=== PATIENT | male | born 1965 | race African-American/Black ===

== ENCOUNTER 2017-09-10 22:31 | Emergency (ER) | payer SELFPAY ==
[2017-09-10] MEDS ORDERED: MECLIZINE HCL 12.5 MG TAB ONE (23:06)
[2017-09-10 23:20] LABS: Absolute Lymphocytes (CBC) 2.5 K/uL (0.7-4.9); Absolute Monocytes 0.7 K/uL (0.1-1.3); Absolute Neutrophil 6.8 K/uL (1.8-8.0); Basophils % 0.5 % (0-1.3); Lymphocytes % 24.2 % (15.3-44.8); MCH 29.8 pg (27.0-35.0); MCV 88.1 fL (80-100); MPV 8.1 fL (7.6-11.3); Monocytes % 7.1 % (3.3-12.3); RBC Red Blood Cell Count 5.22 M/uL (4.33-5.43)
[2017-09-10 23:31] LABS: Protime INR 1.13
[2017-09-10 23:44] LABS: ALT/SGPT 26 U/L (12-78); AST/SGOT 13 U/L (15-37); Albumin 3.5 g/dL (3.4-5.0); Alkaline Phosphatase 111 U/L (45-117); BUN Blood Urea Nitrogen 7 mg/dL (7-18); Bicarbonate 30 mmol/L (21-32); Bilirubin Direct < 0.1 mg/dL (0-0.2); Bilirubin Total 0.4 mg/dL (0.2-1.0); Creatine Phosphokinase 77 U/L (39-308); Glucose Level 108 mg/dL (74-106); Magnesium 2.2 mg/dL (1.8-2.4); NT PRO-BNP 54 pg/mL (<125); Potassium 3.8 mmol/L (3.5-5.1); Protein, Total 8.2 g/dL (6.4-8.2); Sodium Level 141 mmol/L (136-145)
[2017-09-11] MEDS ORDERED: DIAZEPAM 2 MG TABLET ONE (00:48)
[2017-09-11] MEDS ORDERED: NA CHLORIDE 0.9% 1,000 ML ONE (00:53)
[2017-09-11 01:36] LABS: Urine Blood NEGATIVE (NEG); Urine Glucose NEGATIVE (NEG); Urine Protein NEGATIVE (NEG); Urine pH 7.5 (5.0-7.0)
--- NOTE | 2017-09-11 01:50 | EDPHYS ---
Physician Documentation [facility] Name: Eddie Hamilton Age: 52 yrs Sex: Male : 1965 Arrival Date: 09/10/2017 Time: 22:35 Bed 6 Private MD: ED Physician Urbano Hamilton HPI: 09/11 00:00 This 52 yrs old Black Male presents to ER via Wheelchair with complaints of Dizziness, pm1 Vertigo. 00:00 The patient presents with sense of spinning. Onset: The symptoms/episode began/occurred pm1 this morning. Context: occurred at home, just prior to the episode the patient experienced no apparent symptoms. Modifying factors: The symptoms are alleviated by holding head still, the symptoms are aggravated by movement of head, changing position. Associated signs and symptoms: Pertinent negatives: abdominal pain, chest pain, focal weakness, headache, numbness, shortness of breath, tingling. Severity of symptoms: in the emergency department the symptoms have improved. The patient has not experienced similar symptoms in the past. The patient has not recently seen a physician. Historical: - Allergies: 09/10 22:55 No Known Allergies; aa1 - Home Meds: 22:55 None [Active]; aa1 - PMHx: 22:55 None; aa1 - PSHx: 22:55 None; aa1 - Immunization history:: Flu vaccine is not up to date. - Social history:: Smoking status: Patient uses tobacco products, smokes one-half pack cigarettes per day. - Ebola Screening: : No symptoms or risks identified at this time. ROS: 09/11 00:00 Constitutional: Negative for fever, chills, and weight loss, Eyes: Negative for injury, pm1 pain, redness, and discharge, ENT: Negative for injury, pain, and discharge, Neck: Negative for injury, pain, and swelling, Cardiovascular: Negative for chest pain, palpitations, and edema, Respiratory: Negative for shortness of breath, cough, wheezing, and pleuritic chest pain, Abdomen/GI: Negative for abdominal pain, nausea, vomiting, diarrhea, and constipation, Back: Negative for injury and pain, : Negative for injury, bleeding, discharge, and swelling, MS/Extremity: Negative for injury and deformity, Skin: Negative for injury, rash, and discoloration. Neuro: Positive for vertigo, Negative for headache, weakness. Exam: 00:00 Constitutional: This is a well developed, well nourished patient who is awake, alert, pm1 and in no acute distress. Head/Face: Normocephalic, atraumatic. Eyes: Pupils equal round and reactive to light, extra-ocular motions intact. Lids and lashes normal. Conjunctiva and sclera are non-icteric and not injected. Cornea within normal limits. Periorbital areas with no swelling, redness, or edema. ENT: Nares patent. No nasal discharge, no septal abnormalities noted. Tympanic membranes are normal and external auditory canals are clear. Oropharynx with no redness, swelling, or masses, exudates, or evidence of obstruction, uvula midline. Mucous membranes moist. Neck: Trachea midline, no thyromegaly or masses palpated, and no cervical lymphadenopathy. Supple, full range of motion without nuchal rigidity, or vertebral point tenderness. No Meningismus. Chest/axilla: Normal chest wall appearance and motion. Nontender with no deformity. No lesions are appreciated. Cardiovascular: Regular rate and rhythm with a normal S1 and S2. No gallops, murmurs, or rubs. Normal PMI, no JVD. No pulse deficits. Respiratory: Lungs have equal breath sounds bilaterally, clear to auscultation and percussion. No rales, rhonchi or wheezes noted. No increased work of breathing, no retractions or nasal flaring. Abdomen/GI: Soft, non-tender, with normal bowel sounds. No distension or tympany. No guarding or rebound. No evidence of tenderness throughout. Back: No spinal tenderness. No costovertebral tenderness. Full range of motion. Skin: Warm, dry with normal turgor. Normal color with no rashes, no lesions, and no evidence of cellulitis. MS/ Extremity: Pulses equal, no cyanosis. Neurovascular intact. Full, normal range of motion. 00:00 Neuro: Orientation: is normal, Mentation: is normal, Motor: moves all fours, Sensation: is normal, Patient refused Ebonie-armijo pik maneuver. Moving patient's head side to side passively reproduced patient's symptoms of veritgo. Vital Signs: 09/10 22:45 BP 155 / 96; Pulse 81; Resp 16; Temp 98.4; Pulse Ox 96% on R/A; Weight 117.03 kg; aa1 Height 5 ft. 10 in. (177.80 cm); Pain 0/10; 23:10 BP 154 / 83 Supine; Pulse 85; lp1 23:10 BP 139 / 99 Sitting; Pulse 85; lp1 23:10 BP 138 / 100 Standing; Pulse 99; lp1 09/11 00:00 BP 143 / 82; Pulse 74; Resp 17; Pulse Ox 95% on R/A; lp1 00:30 BP 150 / 85; Pulse 87; Resp 17; Pulse Ox 94% on R/A; lp1 01:00 BP 140 / 95; Pulse 89; Resp 13; Pulse Ox 97% on R/A; lp1 02:00 BP 136 / 90; Pulse 76; Resp 17; Pulse Ox 95% on R/A; lp1 02:39 BP 137 / 88; Pulse 79; Resp 20; Pulse Ox 96% on R/A; tl2 09/10 22:45 Body Mass Index 37.02 (117.03 kg, 177.80 cm) aa1 MDM: 09/10 22:39 Patient medically screened. pm1 09/11 00:09 Data reviewed: vital signs. Data interpreted: Pulse oximetry: on room air is 96 %. pm1 Interpretation: normal. Counseling: I had a detailed discussion with the patient and/or guardian regarding: the historical points, exam findings, and any diagnostic results supporting the discharge/admit diagnosis, lab results, radiology results, the need for outpatient follow up, a neurologist, to return to the emergency department if symptoms worsen or persist or if there are any questions or concerns that arise at home. 09/10 22:55 Order name: Basic Metabolic Panel; Complete Time: 23:47 pm09/10 22:55 Order name: CBC with Diff; Complete Time: 23:47 pm09/10 22:55 Order name: Ckmb; Complete Time: 23:47 pm09/10 22:55 Order name: CPK; Complete Time: 23:47 pm09/10 22:55 Order name: LFT's; Complete Time: 23:47 pm09/10 22:55 Order name: Magnesium; Complete Time: 23:47 pm09/10 22:55 Order name: CT Head Brain wo Cont pm1 09/10 22:55 Order name: NT PRO-BNP; Complete Time: 23:47 pm09/10 22:55 Order name: PT-INR; Complete Time: 23:47 pm1 09/10 22:55 Order name: Ptt, Activated; Complete Time: 23:47 pm09/10 22:55 Order name: Troponin (emerg Dept Use Only); Complete Time: 23:47 pm1 09/10 22:55 Order name: XRAY Chest (1 view) pm1 09/11 01:21 Order name: Urine Dipstick--Ancillary (enter results); Complete Time: 01:48 ms 09/10 22:55 Order name: EKG; Complete Time: 22:56 pm1 09/10 22:55 Order name: Cardiac monitoring; Complete Time: 22:57 pm1 09/10 22:55 Order name: EKG - Nurse/Tech; Complete Time: 22:57 pm1 09/10 22:55 Order name: IV Saline Lock; Complete Time: 22:57 pm1 09/10 22:55 Order name: Labs collected and sent; Complete Time: 22:57 pm09/10 22:55 Order name: O2 Per Protocol; Complete Time: 22:57 pm09/10 22:55 Order name: O2 Sat Monitoring; Complete Time: 22:57 pm1 09/10 22:55 Order name: Urine Dipstick-Ancillary (obtain specimen); Complete Time: 01:13 pm09/10 22:55 Order name: Orthostatic Blood Pressure; Complete Time: 23:15 pm1 Administered Medications: 09/10 23:15 Drug: Meclizine 50 mg Route: PO; lp1 09/11 00:20 Follow up: Response: No change in condition lp1 00:47 Drug: Valium 2 mg Route: PO; aa1 02:40 Follow up: Response: No adverse reaction tl2 01:06 Drug: NS 0.9% 1000 ml Route: IV; Rate: 1000 ml; Site: left antecubital; tl2 02:44 Follow up: IV Status: Completed infusion tl2 Disposition: 09/11/17 01:49 Discharged to Home. Impression: Benign paroxysmal vertigo. - Condition is Stable. - Discharge Instructions: Benign Positional Vertigo. - Prescriptions for Valium 2 mg Oral Tablet - take 1 tablet by ORAL route every 8 hours As needed; 20 tablet. Zofran 4 mg Oral Tablet - take 1 tablet by ORAL route every 12 hours As needed; 20 tablet. - Medication Reconciliation Form, Thank You Letter, Prescription Opioid Use form. - Follow up: Emergency Department; When: As needed; Reason: Worsening of condition. Follow up: Lexa Nguyen MD; When: 2 - 3 days; Reason: Recheck today's complaints, Continuance of care, Re-evaluation by your physician. - Problem is new. - Symptoms have improved. Addendum: 09/12/2017 10:47 Co-signature as Attending Physician, Urbano Hamilton MD I agree with the assessment and c king plan of care. Signatures: Dispatcher [employer] EDMS Maryjane Reardon RN RN aa1 Urbano Hamilton MD MD cha Pena, Laura RN RN lp1 Vinicio Silver NP VIDEO GAME PROGRAMMER pm1 Senait Montes RN RN tl2 Corrections: (The following items were deleted from the chart) 09/11 02:44 01:49 09/11/2017 01:49 Discharged to Home. Impression: Benign paroxysmal vertigo. tl2 Condition is Stable. Forms are Medication Reconciliation Form, Thank You Letter, Antibiotic Education, Prescription Opioid Use. Follow up: Emergency Department; When: As needed; Reason: Worsening of condition. Follow up: Lxea Nguyen; When: 2 - 3 days; Reason: Recheck today's complaints, Continuance of care, Re-evaluation by your physician. Problem is new. Symptoms have improved. pm1
--- NOTE | 2017-09-11 01:50 | ER ---
Nurse's Notes [facility] Name: Eddie Hamilton Age: 52 yrs Sex: Male : 1965 Arrival Date: 09/10/2017 Time: 22:35 Bed 6 Private MD: Diagnosis: Benign paroxysmal vertigo Presentation: 09/10 22:45 Presenting complaint: Patient states: he woke up this about 0800 with significant aa1 dizziness. States, "I got up and the room was spinning and so I laid back down and then it started spinning the other way." Denies headache, blurred vision, numbness or tingling. Denies any other symptoms. Transition of care: patient was not received from another setting of care. Onset of symptoms was September 10, 2017 at 08:00. Risk Assessment: Do you want to hurt yourself or someone else? Patient reports no desire to harm self or others. Initial Sepsis Screen: Does the patient meet any 2 criteria? No. Patient's initial sepsis screen is negative. Does the patient have a suspected source of infection? No. Patient's initial sepsis screen is negative. Care prior to arrival: None. 22:45 Method Of Arrival: Wheelchair aa1 22:45 Acuity: NICO 3 aa1 Triage Assessment: 22:45 General: Appears in no apparent distress. comfortable, Behavior is calm, cooperative, aa1 appropriate for age. Pain: Denies pain. Historical: - Allergies: 22:55 No Known Allergies; aa1 - Home Meds: 22:55 None [Active]; aa1 - PMHx: 22:55 None; aa1 - PSHx: 22:55 None; aa1 - Immunization history:: Flu vaccine is not up to date. - Social history:: Smoking status: Patient uses tobacco products, smokes one-half pack cigarettes per day. - Ebola Screening: : No symptoms or risks identified at this time. Screenin/29 00:17 Abuse screen: Denies threats or abuse. Denies injuries from another. Nutritional lp1 screening: No deficits noted. Tuberculosis screening: No symptoms or risk factors identified. Fall Risk None identified. Assessment: 09/10 23:00 General: Appears uncomfortable, Behavior is appropriate for age. Pain: Denies pain. lp1 Neuro: Level of Consciousness is awake, alert, obeys commands, Oriented to person, place, time, situation, Pupils are PERRLA, Reports dizziness, since this morning. Cardiovascular: Patient's skin is warm and dry. Respiratory: Respiratory effort is even, unlabored, Breath sounds are clear bilaterally. GI: No signs and/or symptoms were reported involving the gastrointestinal system. : No signs and/or symptoms were reported regarding the genitourinary system. EENT: No signs and/or symptoms were reported regarding the EENT system. Derm: Skin is intact, Skin is dry, Skin is normal. Musculoskeletal: Circulation, motion, and sensation intact. 09/11 00:00 Reassessment: Patient appears in no apparent distress at this time. No changes from lp1 previously documented assessment. Patient and/or family updated on plan of care and expected duration. Pain level reassessed. 01:00 Reassessment: Patient and/or family updated on plan of care and expected duration. Pain lp1 level reassessed. Patient states dizziness continued. 02:41 Reassessment: Patient appears in no apparent distress at this time. Patient and/or tl2 family updated on plan of care and expected duration. Pain level reassessed. Patient is alert, oriented x 3, equal unlabored respirations, skin warm/dry/pink. Pt and family verbalized understanding of discharge instructions, need for follow up and prescription usage Patient states feeling better. Vital Signs: 09/10 22:45 BP 155 / 96; Pulse 81; Resp 16; Temp 98.4; Pulse Ox 96% on R/A; Weight 117.03 kg; aa1 Height 5 ft. 10 in. (177.80 cm); Pain 0/10; 23:10 BP 154 / 83 Supine; Pulse 85; lp1 23:10 BP 139 / 99 Sitting; Pulse 85; lp1 23:10 BP 138 / 100 Standing; Pulse 99; lp1 09/11 00:00 BP 143 / 82; Pulse 74; Resp 17; Pulse Ox 95% on R/A; lp1 00:30 BP 150 / 85; Pulse 87; Resp 17; Pulse Ox 94% on R/A; lp1 01:00 BP 140 / 95; Pulse 89; Resp 13; Pulse Ox 97% on R/A; lp1 02:00 BP 136 / 90; Pulse 76; Resp 17; Pulse Ox 95% on R/A; lp1 02:39 BP 137 / 88; Pulse 79; Resp 20; Pulse Ox 96% on R/A; tl2 09/10 22:45 Body Mass Index 37.02 (117.03 kg, 177.80 cm) aa1 ED Course: 09/10 22:35 Patient arrived in ED. es 22:38 Vinicio Silver NP is PHCP. pm1 22:38 Urbano Hamilton MD is Attending Physician. pm1 22:45 Arm band placed on right wrist. Patient placed in an exam room, on a stretcher. aa1 22:52 Triage completed. aa1 22:52 Inserted saline lock: 22 gauge in right hand, using aseptic technique. Blood collected. tl2 placed by demetri Pineda. 23:00 Patient has correct armband on for positive identification. Placed in gown. Bed in low lp1 position. Call light in reach. pvc monitor on. Pulse ox on. NIBP on. 23:01 Veronika Simon, RN is Primary Nurse. lp1 23:[address] via wheelchair. kw1 23:17 XRAY Chest (1 view) In Process Unspecified. EDMS 23:23 CT Head Brain wo Cont In Process Unspecified. EDMS 23:24 CT completed. Patient tolerated procedure well. Patient moved back from CT. kw1 09/11 01:48 Lexa Nguyen MD is Referral Physician. pm1 02:43 No provider procedures requiring assistance completed. IV discontinued, intact, tl2 bleeding controlled, No redness/swelling at site. Pressure dressing applied. Administered Medications: 09/10 23:15 Drug: Meclizine 50 mg Route: PO; lp1 09/11 00:20 Follow up: Response: No change in condition lp1 00:47 Drug: Valium 2 mg Route: PO; aa1 02:40 Follow up: Response: No adverse reaction tl2 01:06 Drug: NS 0.9% 1000 ml Route: IV; Rate: 1000 ml; Site: left antecubital; tl2 02:44 Follow up: IV Status: Completed infusion tl2 Outcome: 01:49 Discharge ordered by . pm1 02:43 Discharged to home via wheelchair, with family. tl2 02:43 Condition: stable 02:43 Discharge instructions given to patient, family, Instructed on discharge instructions, follow up and referral plans. medication usage, Demonstrated understanding of instructions, follow-up care, medications, Prescriptions given X 2. 02:44 Patient left the ED. tl2 Signatures: Dispatcher [employer] Maryjane Webster RN RN aa1 Rosa Baez Laura, RN RN lp1 Vinicio Silver, POULTRY KILLER POULTRY KILLER pm1 Senait Montes RN RN tl2 Alcira [facility]
[2017-09-11 02:51] VITALS: TEMP 98.4
[2017-09-11 02:56] VITALS: BP 137/88; O2SAT 96
--- NOTE | 2017-09-11 07:46 | RAD REPORT ---
EXAM DESCRIPTION: CT - Head Brain Wo Cont - 09/11/2017 12:21 am CLINICAL HISTORY: Weakness, dizziness A preliminary written report was provided at the time of the study, and the report was reviewed prio r to final dictation. COMPARISON: None. TECHNIQUE: Axial 5 mm thick images of the head were obtained without IV contrast. All CT scans are performed using dose optimization technique as appropriate and may include automated exposure control or mA/KV adjustment according to patient size. FINDINGS: No intracranial hemorrhage, mass, edema or shift of mid-line structures. No acute infarcti on changes seen. No abnormal extra-axial fluid collections. Ventricles are normal. Mastoid air cells are clear. No significant paranasal sinus finding. Physiologic calcifications are p resent. No acute bony findings. IMPRESSION: Negative non-contrast CT head examination.
--- NOTE | 2017-09-11 07:46 | RAD REPORT ---
EXAM DESCRIPTION: RAD - Chest Single View - 09/10/2017 11:16 pm CLINICAL HISTORY: Dizziness, shortness of breath COMPARISON: November 2016 TECHNIQUE: AP portable chest image was obtained 2312 hour . FINDINGS: No focal lung parenchymal process. Interstitial markings are prominent but not clearly dif ferent from the comparison. Trachea is midline. Heart and vasculature are normal. No measurable pleur al effusion and no pneumothorax. No gross bony abnormality seen. No acute aortic findings suspected. IMPRESSION: No acute cardiopulmonary process. No significant change from comparison.
--- NOTE | 2017-09-11 09:31 | EKG ---
Test Date: 2017-09-10 Test Time: 22:45:03 Percher: GREGOR MEASUREMENT RESULTS: Intervals: Rate: 87 PA: 138 QRSD: 88 QT: 378 QTc: 454 [place]: P: 76 PA: 138 QRS: 17 T: 49 INTERPRETIVE STATEMENTS: Normal sinus rhythm Right atrial enlargement Borderline ECG Compared to ECG 12/14/2016 10:53:54 Atrial abnormality now present Electronically Signed On 09-11-17 09:30:33 CDT by Vladislav Plascencia
== END 2017-09-11 02:44 | disposition home or self-care (01) ==
LOC: ER 22:31
DX: H81.10 Benign paroxysmal vertigo, unspecified ear (principal); F17.210 Nicotine dependence, cigarettes, uncomplicated
CPT/HCPCS: 36415; 70450; 71045; 80048; 80076; 81003; 82550; 82553; 83735; 83880; 84484; 85025; 85610; 85730; 93005; 96360; 96361; 99285; J7030

== ENCOUNTER 2017-12-08 13:13 | Emergency (ER) | payer SELFPAY ==
[2017-12-08] MEDS ORDERED: ASPIRIN 81 MG CHEWABLE TABLET ONE (13:35)
[2017-12-08] MEDS ORDERED: METOPROLOL TAR 50 MG TAB ONE (13:36)
[2017-12-08 13:50] LABS: Absolute Lymphocytes (CBC) 3.1 K/uL (0.7-4.9); Absolute Monocytes 0.6 K/uL (0.1-1.3); Absolute Neutrophil 2.7 K/uL (1.8-8.0); Eosinophils % 4.7 % (0-4.4); Hematocrit 45.7 % (39.6-49.0); Lymphocytes % 45.2 % (15.3-44.8); MCH 29.6 pg (27.0-35.0); MCV 88.1 fL (80-100); MPV 8.1 fL (7.6-11.3); Monocytes % 8.9 % (3.3-12.3); RBC Red Blood Cell Count 5.19 M/uL (4.33-5.43)
--- NOTE | 2017-12-08 14:04 | RAD REPORT ---
EXAM DESCRIPTION: RAD - Chest Single View - 12/08/2017 1:46 pm CLINICAL HISTORY: Chest pain and pressure COMPARISON: September 10 TECHNIQUE: AP portable chest image was obtained 1341 hours . FINDINGS: No focal mass or consolidation. Interstitial markings are prominent. Heart size and vascul ature within normal limits. Mild prominence of the lung parenchymal pattern has not changed from the prior study. No failure or volume overload. Heart and vasculature are normal. No measurable pleural effusion and no pneumothorax. No acute bony abnormality seen. No acute aortic findings suspected. IMPRESSION: No acute cardiopulmonary process. No significant change from comparison.
[2017-12-08 14:07] LABS: ALT/SGPT 28 U/L (12-78); AST/SGOT 15 U/L (15-37); Albumin 3.5 g/dL (3.4-5.0); Alkaline Phosphatase 114 U/L (45-117); BUN Blood Urea Nitrogen 10 mg/dL (7-18); Bicarbonate 26 mmol/L (21-32); Bilirubin Direct 0.1 mg/dL (0-0.2); Bilirubin Total 0.4 mg/dL (0.2-1.0); Glucose Level 133 mg/dL (74-106); Lipase 173 U/L (73-393); NT PRO-BNP 9 pg/mL (<125); Potassium 3.5 mmol/L (3.5-5.1); Protein, Total 8.4 g/dL (6.4-8.2); Sodium Level 138 mmol/L (136-145); Troponin I < 0.02 ng/mL (0.0-0.045)
--- NOTE | 2017-12-08 14:42 | ER ---
Nurse's Notes [facility] Name: Eddie Hamilton Age: 52 yrs Sex: Male : 1965 Arrival Date: 12/08/2017 Time: 13:15 Bed 23 Private MD: Diagnosis: Unspecified atrial fibrillation;Chest pain, unspecified Presentation: 12/08 13:20 Presenting complaint: Patient states: Chest pressure and tightness that began 30 aj1 minutes ago. Also reports palpitations and shortness of breath. Patient appears uncomfortable, clutching chest. Dr. Browne and ARPITA Olivarez at bedside during triage. Transition of care: patient was not received from another setting of care. Onset of symptoms was December 08, 2017 at 12:50. Risk Assessment: Do you want to hurt yourself or someone else? Patient reports no desire to harm self or others. Initial Sepsis Screen: Does the patient meet any 2 criteria? HR > 90 bpm. No. Patient's initial sepsis screen is negative. Does the patient have a suspected source of infection? No. Patient's initial sepsis screen is negative. Care prior to arrival: None. 13:20 Method Of Arrival: Wheelchair aj1 13:20 Acuity: NICO 2 aj1 Triage Assessment: 13:23 General: Appears distressed, uncomfortable, Behavior is cooperative, restless. Pain: aj1 Complains of pain in chest Pain does not radiate. Pain currently is 10 out of 10 on a pain scale. Quality of pain is described as pressure, Pain began 30 min ago. Is continuous, Alleviated by nothing. Aggravated by nothing. Neuro: Level of Consciousness is awake, alert, obeys commands. Cardiovascular: Reports chest pain, palpitations, shortness of breath, Patient's skin is warm and dry. Rhythm is irregular. Respiratory: Airway is patent Respiratory effort is even, unlabored, Respiratory pattern is regular, symmetrical. Historical: - Allergies: 13:23 No Known Allergies; aj1 - Home Meds: 13:23 None [Active]; aj1 - PMHx: 13:23 Asthma; aj1 - PSHx: 13:23 None; aj1 - Immunization history:: Flu vaccine is not up to date. - Social history:: Smoking status: Patient uses tobacco products, smokes one-half pack cigarettes per day. - Ebola Screening: : Patient denies travel to an Ebola-affected area in the 21 days before illness onset. - Family history:: not pertinent. - Hospitalizations: : No recent hospitalization is reported. Screenin:34 Abuse screen: Denies threats or abuse. Denies injuries from another. Nutritional kr2 screening: No deficits noted. Tuberculosis screening: No symptoms or risk factors identified. Fall Risk None identified. Assessment: 13:35 General: Appears in no apparent distress. uncomfortable, well groomed, Behavior is kr2 calm, cooperative, appropriate for age. Pain: Complains of pain in chest Pain does not radiate. Pain currently is 10 out of 10 on a pain scale. Quality of pain is described as pressure, Is continuous, Alleviated by nothing. Pain: Pain began suddenly. Neuro: Level of Consciousness is awake, alert, obeys commands, Oriented to person, place, time, situation. Cardiovascular: Patient's skin is warm and dry. Cardiovascular: Heart tones S1 S2. Respiratory: Airway is patent Respiratory effort is even, unlabored, Respiratory pattern is regular, symmetrical. GI: Abdomen is flat, non-distended, Patient currently denies nausea. EENT: Oral mucosa is moist. Derm: Skin is intact, is healthy with good turgor, Skin is pink, warm \T\ dry. Musculoskeletal: Circulation, motion, and sensation intact. 14:28 Reassessment: Patient appears in no apparent distress at this time. Patient and/or kr2 family updated on plan of care and expected duration. Pain level reassessed. Patient is alert, oriented x 3, equal unlabored respirations, skin warm/dry/pink. Patient states feeling better. Vital Signs: 13:23 BP 151 / 101; Pulse 110; Resp 22; Temp 97.4; Pulse Ox 97% on R/A; Pain 10/10; aj1 13:25 Weight 116.57 kg (R); Height 5 ft. 10 in. (177.80 cm) (R); aj1 14:28 BP 127 / 90; Pulse 82; Resp 15; Pulse Ox 97% on R/A; kr2 13:25 Body Mass Index 36.88 (116.57 kg, 177.80 cm) aj1 ED Course: 13:15 Patient arrived in ED. as 13:19 Calvin Browne MD is Attending Physician. rn 13:20 Patient has correct armband on for positive identification. Bed in low position. Call kr2 light in reach. Side rails up X 1. Adult w/ patient. activities aide on. Pulse ox on. NIBP on. Door closed. Verbal reassurance given. Head of bed elevated. 13:22 Triage completed. aj1 13:23 Arm band placed on Patient placed in an exam room. aj1 13:25 EKG done, by service tech. reviewed by Calvin Browne MD. 3 13:25 Inserted saline lock: 20 gauge in right antecubital area, using aseptic technique. kr2 Blood collected. 13:27 Juanis Rivero, RN is Primary Nurse. kr2 13:35 Patient maintains SpO2 saturation greater than 95% on room air. kr2 13:47 XRAY Chest (1 view) In Process Unspecified. EDMS 14:05 Basic Metabolic Panel Sent. jp3 14:05 CBC with Diff Sent. jp3 14:05 LFT's Sent. jp3 14:05 NT PRO-BNP Sent. jp3 14:05 Troponin (emerg Dept Use Only) Sent. jp3 14:13 REPEAT EKG DONE. 3 14:42 Hilario Mccormick MD is Referral Physician. rn 14:56 No provider procedures requiring assistance completed. IV discontinued, intact, kr2 bleeding controlled, No redness/swelling at site. Pressure dressing applied. Administered Medications: 13:32 Drug: Aspirin Chewable Tablet 324 mg Route: PO; kr2 14:50 Follow up: Response: No adverse reaction kr2 13:32 Drug: Metoprolol TARTRATE (Lopressor) 50 mg Route: PO; kr2 14:50 Follow up: Response: No adverse reaction kr2 Outcome: 14:42 Discharge ordered by . rn 14:57 Discharged to home ambulatory, with friend. kr2 14:57 Condition: good 14:57 Discharge instructions given to patient, Instructed on discharge instructions, follow up and referral plans. Demonstrated understanding of instructions, follow-up care. 14:57 Patient left the ED. kr2 Signatures: Dispatcher [employer] EDMS Geni Pal RN RN michell1 Linn Cabrera Roman, MD MD rn Reaves, Karey, RN RN kr2 Enriqueta Jones 3 Donny Granda jp3 Corrections: (The following items were deleted from the chart) 13:25 13:20 Presenting complaint: Patient states: Chest pressure and tightness that began 30 aj1 minutes ago. Also reports palpitations and shortness of breath. Patient appears uncomfortable, clutching chest. aj1
--- NOTE | 2017-12-08 14:42 | EDPHYS ---
Physician Documentation [facility] Name: Eddie Hamilton Age: 52 yrs Sex: Male : 1965 Arrival Date: 12/08/2017 Time: 13:15 Bed 23 Private MD: ED Physician Calvin Browne HPI: 12/08 13:23 This 52 yrs old Black Male presents to ER via Wheelchair with complaints of Chest Pain. rn 13:23 The patient or guardian reports chest pain that is located primarily in the substernal rn area. Onset: 20 minute(s) ago. The pain does not radiate. Associated signs and symptoms: Pertinent positives: palpitations, Pertinent negatives: abdominal pain, cough, diaphoresis, dizziness, lower extremity swelling, lightheadedness. The chest pain is described as a heaviness, a pressure. Duration: The patient or guardian reports a single episode, that is still ongoing. Severity of pain: At its worst the pain was moderate in the emergency department the pain is unchanged. The patient has not experienced similar symptoms in the past. The patient has not recently seen a physician. Historical: - Allergies: 13:23 No Known Allergies; aj1 - Home Meds: 13:23 None [Active]; aj1 - PMHx: 13:23 Asthma; aj1 - PSHx: 13:23 None; aj1 - Immunization history:: Flu vaccine is not up to date. - Social history:: Smoking status: Patient uses tobacco products, smokes one-half pack cigarettes per day. - Ebola Screening: : Patient denies travel to an Ebola-affected area in the 21 days before illness onset. - Family history:: not pertinent. - Hospitalizations: : No recent hospitalization is reported. ROS: 13:23 Constitutional: Negative for fever, chills, and weight loss, Eyes: Negative for injury, rn pain, redness, and discharge, Neck: Negative for injury, pain, and swelling, Cardiovascular: + chest pain and palpitations Respiratory: Negative for shortness of breath, cough, wheezing, and pleuritic chest pain, Abdomen/GI: Negative for abdominal pain, nausea, vomiting, diarrhea, and constipation, MS/Extremity: Negative for injury and deformity, Skin: Negative for injury, rash, and discoloration, Neuro: Negative for headache, weakness, numbness, tingling, and seizure. Exam: 13:23 Constitutional: This is a well developed, well nourished patient who is awake, alert, rn appears anxious Head/Face: Normocephalic, atraumatic. Eyes: Pupils equal round and reactive to light, extra-ocular motions intact. Lids and lashes normal. Conjunctiva and sclera are non-icteric and not injected. Cornea within normal limits. Periorbital areas with no swelling, redness, or edema. Cardiovascular: tachycardic, irregular, no murmur Respiratory: mild tachypnea, clear bilateral breath sounds Abdomen/GI: soft, non-tender MS/ Extremity: Pulses equal, no cyanosis. Neurovascular intact. Full, normal range of motion. Equal circumference. Neuro: Awake and alert, GCS 15, oriented to person, place, time, and situation. Cranial nerves II-XII grossly intact. Motor strength 5/5 in all extremities. Sensory grossly intact. Vital Signs: 13:23 BP 151 / 101; Pulse 110; Resp 22; Temp 97.4; Pulse Ox 97% on R/A; Pain 10/10; aj1 13:25 Weight 116.57 kg (R); Height 5 ft. 10 in. (177.80 cm) (R); aj1 14:28 BP 127 / 90; Pulse 82; Resp 15; Pulse Ox 97% on R/A; kr2 13:25 Body Mass Index 36.88 (116.57 kg, 177.80 cm) aj1 MDM: 13:19 Patient medically screened. rn 14:33 Differential diagnosis: acute myocardial infarction, acute pericarditis, coronary rn artery disease gastritis, pleurisy, pneumothorax, stable angina, afib. The patient was given aspirin in the Emergency Department. Data reviewed: vital signs, EMS record, lab test result(s), EKG, radiologic studies, plain films, and as a result, I will admit patient. Counseling: I had a detailed discussion with the patient and/or guardian regarding: the historical points, exam findings, and any diagnostic results supporting the discharge/admit diagnosis, lab results, radiology results, the need for outpatient follow up, to return to the emergency department if symptoms worsen or persist or if there are any questions or concerns that arise at home. Special discussion: I discussed with the patient/guardian in detail that at this point there is no indication for admission to the hospital. It is understood, however, that if the symptoms persist or worsen the patient needs to return immediately for re-evaluation. Based on the history and exam findings, there is no indication for further emergent testing or inpatient evaluation. I discussed with the patient/guardian the need to see the conveyor man for further evaluation of the symptoms. ED course: Patient with return to baseline, tachycardia and chest pain likely due to afib with rvr, single dose of metoprolol and now sinus and no chest pain. Trop normal. Offered admission for cardiology eval, patient states cannot stay tonight, ensures me that he will f/u with pcp and cardiology, will take daily aspirin until then. . 12/08 13:21 Order name: XRAY Chest (1 view); Complete Time: 14:06 rn 12/08 13:42 Order name: Basic Metabolic Panel; Complete Time: 14:18 EDMS 12/08 13:42 Order name: Liver (Hepatic) Function; Complete Time: 14:18 EDMS 12/08 13:42 Order name: Troponin I; Complete Time: 14:18 EDMS 12/08 13:42 Order name: NT PRO-BNP; Complete Time: 14:18 EDMS 12/08 13:42 Order name: Lipase; Complete Time: 14:18 EDMS 12/08 13:42 Order name: CBC with Automated Diff; Complete Time: 14:06 EDMS 12/08 13:21 Order name: EKG; Complete Time: 13:40 rn 12/08 13:21 Order name: Cardiac monitoring; Complete Time: 13:24 rn 12/08 13:21 Order name: EKG - Nurse/Tech; Complete Time: 13:24 rn 12/08 13:21 Order name: IV Saline Lock; Complete Time: 13:24 rn 12/08 13:21 Order name: Labs collected and sent; Complete Time: 13:24 rn 12/08 13:21 Order name: O2 Per Protocol; Complete Time: 13:25 rn 12/08 13:21 Order name: O2 Sat Monitoring; Complete Time: 13:25 rn Administered Medications: 13:32 Drug: Aspirin Chewable Tablet 324 mg Route: PO; kr2 14:50 Follow up: Response: No adverse reaction kr2 13:32 Drug: Metoprolol TARTRATE (Lopressor) 50 mg Route: PO; kr2 14:50 Follow up: Response: No adverse reaction kr2 Disposition: 12/08/17 14:42 Discharged to Home. Impression: Unspecified atrial fibrillation, Chest pain, unspecified. - Condition is Stable. - Discharge Instructions: Atrial Fibrillation, Nonspecific Chest Pain. - Medication Reconciliation Form, Thank You Letter, Antibiotic Education, Prescription Opioid Use form. - Follow up: Hilario Mccormick MD; When: As needed; Reason: Recheck today's complaints, Re-evaluation by your physician. - Problem is new. - Symptoms have improved. Signatures: Dispatcher [employer] EDMS Geni Pal RN RN aj1 Calvin Browne MD MD rn Reaves, Karey, RN RN kr2 Corrections: (The following items were deleted from the chart) 14:57 14:42 12/08/2017 14:42 Discharged to Home. Impression: Unspecified atrial fibrillation; kr2 Chest pain, unspecified. Condition is Stable. Forms are Medication Reconciliation Form, Thank You Letter, Antibiotic Education, Prescription Opioid Use. Follow up: Hilario Mccormick; When: As needed; Reason: Recheck today's complaints, Re-evaluation by your physician. Problem is new. Symptoms have improved. rn
[2017-12-08 15:15] VITALS: TEMP 97.4; O2SAT 97
[2017-12-08 15:16] VITALS: BP 127/90
--- NOTE | 2017-12-09 07:31 | EKG ---
Test Date: 2017-12-08 Test Time: 14:06:14 Clinical Statistical Programmer: EVERTON MEASUREMENT RESULTS: Intervals: Rate: 84 PA: 154 QRSD: 92 QT: 370 QTc: 437 [place]: P: 68 PA: 154 QRS: 16 T: 50 INTERPRETIVE STATEMENTS: Normal sinus rhythm Right atrial enlargement Borderline ECG Compared to ECG 12/08/2017 13:22:10 Atrial abnormality now present Atrial fibrillation no longer present Ventricular premature complex(es) no longer present Electronically Signed On 12-09-17 07:27:52 CDT by Hilario Mccormick
--- NOTE | 2017-12-09 07:31 | EKG ---
Test Date: 2017-12-08 Test Time: 13:22:10 Property Developer: HERMELINDA MEASUREMENT RESULTS: Intervals: Rate: 116 HI: QRSD: 86 QT: 324 QTc: 450 [place]: P: HI: QRS: 16 T: 31 INTERPRETIVE STATEMENTS: Atrial fibrillation with rapid ventricular response with premature ventricular or aberrantly conducted complexes Abnormal ECG Compared to ECG 09/10/2017 22:45:03 Ventricular premature complex(es) now present Sinus rhythm no longer present Atrial abnormality no longer present Electronically Signed On 12-09-17 07:27:52 CDT by Hilario Mccormick
== END 2017-12-08 14:57 | disposition home or self-care (01) ==
LOC: ER 13:13
DX: I48.91 Unspecified atrial fibrillation (principal); F17.210 Nicotine dependence, cigarettes, uncomplicated
CPT/HCPCS: 36415; 71045; 80048; 80076; 83690; 83880; 84484; 85025; 93005; 99285

== ENCOUNTER 2018-09-11 07:42 | Emergency (ER) | payer SELFPAY ==
[2018-09-11] MEDS ORDERED: ASPIRIN 81 MG CHEWABLE TABLET ONE (08:17)
[2018-09-11 08:23] LABS: Absolute Lymphocytes (CBC) 3.2 K/uL (0.7-4.9); Basophils % 0.8 % (0-1.3); Hematocrit 46.1 % (39.6-49.0); MPV 8.2 fL (7.6-11.3); RBC Red Blood Cell Count 5.22 M/uL (4.33-5.43)
[2018-09-11 08:24] LABS: Protime INR 1.07
[2018-09-11] MEDS ORDERED: MORPHINE 2 MG/ML SYR ONE (08:26)
[2018-09-11] MEDS ORDERED: ONDANSETRON 4 MG/2 ML VIAL ONE (08:26)
[2018-09-11 08:41] LABS: ALT/SGPT 26 U/L (12-78); AST/SGOT 16 U/L (15-37); Albumin 3.2 g/dL (3.4-5.0); Alkaline Phosphatase 103 U/L (45-117); BUN Blood Urea Nitrogen 10 mg/dL (7-18); Bicarbonate 24 mmol/L (21-32); Bilirubin Direct < 0.1 mg/dL (0-0.2); Bilirubin Total 0.3 mg/dL (0.2-1.0); Glucose Level 165 mg/dL (74-106); Magnesium 1.9 mg/dL (1.8-2.4); NT PRO-BNP 12 pg/mL (<125); Potassium 3.2 mmol/L (3.5-5.1); Protein, Total 7.6 g/dL (6.4-8.2); Sodium Level 141 mmol/L (136-145); Troponin (Emerg Dept Use Only) < 0.02 ng/mL (0.0-0.045)
--- NOTE | 2018-09-11 09:00 | EKG ---
Test Date: 2018-09-11 Test Time: 07:56:49 Breakfast Manager: PHILIPPE MEASUREMENT RESULTS: Intervals: Rate: 94 WA: 146 QRSD: 92 QT: 368 QTc: 460 [place]: P: 78 WA: 146 QRS: 36 T: 73 INTERPRETIVE STATEMENTS: Normal sinus rhythm Right atrial enlargement Borderline ECG Compared to ECG 12/08/2017 14:06:14 No significant changes Electronically Signed On 09-11-18 08:59:35 CDT by Vladislav Plascencia
[2018-09-11 09:15] LABS: Blood Morphology Comment NOT SEEN (NOT SEEN); Platelet Estimate ADEQ
[2018-09-11] MEDS ORDERED: POTASSIUM CL SA 10 MEQ TAB PO ONE (09:17)
--- NOTE | 2018-09-11 09:39 | RAD REPORT ---
EXAM DESCRIPTION: RAD - Chest Single View - 09/11/2018 8:50 am CLINICAL HISTORY: Left-sided chest pain, history of asthma COMPARISON: November 2017 TECHNIQUE: AP portable chest image was obtained 0842 hours . FINDINGS: Lungs are clear. Heart and vasculature are normal. No measurable pleural effusion and no p neumothorax. No acute bony abnormality seen. No acute aortic findings suspected. IMPRESSION: No acute cardiopulmonary process. No significant interval change.
--- NOTE | 2018-09-11 10:46 | EDPHYS ---
Physician Documentation [facility] Name: Eddie Hamilton Age: 53 yrs Sex: Male : 1965 Arrival Date: 09/11/2018 Time: 07:46 Bed 6 Private MD: None, None ED Physician Jerzy Oswald HPI: 09/11 08:16 This 53 yrs old Black Male presents to ER via Ambulatory with complaints of Chest Pain. kdr 08:16 The patient or guardian reports chest pain that is located primarily in the anterior kdr chest wall, left. Onset: suddenly, at 05:00. The pain does not radiate. Associated signs and symptoms: Pertinent positives: lightheadedness, shortness of breath, Pertinent negatives: abdominal pain, cough, diaphoresis, dizziness, headache, lower extremity pain, lower extremity swelling, nausea, palpitations. The chest pain is described as aching, dull, a pressure. Duration: The patient or guardian reports a single episode, that is still ongoing, but improving, Initially pain was an 11 now a 4. Modifying factors: The symptoms are alleviated by nothing. the symptoms are aggravated by nothing. Severity of pain: At its worst the pain was mild moderate just prior to arrival, in the emergency department the pain has improved moderately. The patient states that he has this pain about once ever 5-6 months. Has not been seen by cardiology. Historical: - Allergies: 07:52 No Known Allergies; bp - Home Meds: 07:52 None [Active]; bp - PMHx: 07:52 Asthma; bp - Immunization history:: Adult Immunizations up to date. - Social history:: Smoking status: Patient/guardian denies using tobacco. - Ebola Screening: : No symptoms or risks identified at this time. ROS: 08:16 Constitutional: Negative for fever, chills, and weight loss, Eyes: Negative for injury, kdr pain, redness, and discharge, ENT: Negative for injury, pain, and discharge, Neck: Negative for injury, pain, and swelling, Respiratory: Negative for shortness of breath, cough, wheezing, and pleuritic chest pain, Abdomen/GI: Negative for abdominal pain, nausea, vomiting, diarrhea, and constipation, Back: Negative for injury and pain, : Negative for injury, bleeding, discharge, and swelling, MS/Extremity: Negative for injury and deformity, Skin: Negative for injury, rash, and discoloration, Neuro: Negative for headache, weakness, numbness, tingling, and seizure activity. Psych: Negative for depression, anxiety, suicide ideation, homicidal ideation, and hallucinations, Allergy/Immunology: Negative for hives, rash, and allergies, Endocrine: Negative for neck swelling, polydipsia, polyuria, polyphagia, and marked weight changes, Hematologic/Lymphatic: Negative for swollen nodes, abnormal bleeding, and unusual bruising. 08:16 Cardiovascular: Positive for chest pain, of the anterior aspect of left upper chest. Exam: 08:16 Constitutional: This is a well developed, well nourished patient who is awake, alert, kdr and in no acute distress. Head/Face: Normocephalic, atraumatic. Eyes: Pupils equal round and reactive to light, extra-ocular motions intact. Lids and lashes normal. Conjunctiva and sclera are non-icteric and not injected. Cornea within normal limits. Periorbital areas with no swelling, redness, or edema. Neck: Trachea midline, no thyromegaly or masses palpated, and no cervical lymphadenopathy. Supple, full range of motion without nuchal rigidity, or vertebral point tenderness. No Meningismus. Chest/axilla: Normal chest wall appearance and motion. Nontender with no deformity. No lesions are appreciated. Cardiovascular: Regular rate and rhythm with a normal S1 and S2. No gallops, murmurs, or rubs. Normal PMI, no JVD. No pulse deficits. Respiratory: Lungs have equal breath sounds bilaterally, clear to auscultation and percussion. No rales, rhonchi or wheezes noted. No increased work of breathing, no retractions or nasal flaring. Abdomen/GI: Soft, non-tender, with normal bowel sounds. No distension or tympany. No guarding or rebound. No evidence of tenderness throughout. Back: No spinal tenderness. No costovertebral tenderness. Full range of motion. Skin: Warm, dry with normal turgor. Normal color with no rashes, no lesions, and no evidence of cellulitis. MS/ Extremity: Pulses equal, no cyanosis. Neurovascular intact. Full, normal range of motion. Neuro: Awake and alert, GCS 15, oriented to person, place, time, and situation. Cranial nerves II-XII grossly intact. Motor strength 5/5 in all extremities. Sensory grossly intact. Cerebellar exam normal. Normal gait. Psych: Awake, alert, with orientation to person, place and time. Behavior, mood, and affect are within normal limits. Vital Signs: 07:52 BP 126 / 90; Pulse 90; Resp 16; Temp 98; Pulse Ox 96% ; Weight 117.93 kg; Height 5 ft. bp 10 in. (177.80 cm); 08:50 BP 119 / 57; Pulse 75; Resp 18; Pulse Ox 99% on 2 lpm NC; hj 10:16 BP 116 / 68; Pulse 75; Resp 18; Pulse Ox 97% on R/A; hj 10:57 BP 118 / 69; Pulse 74; Resp 18; Pulse Ox 100% on R/A; hj 07:52 Body Mass Index 37.31 (117.93 kg, 177.80 cm) bp MDM: 08:16 HEART Score: History: Moderately Suspicious (1), ECG: Normal (0), Age: > 45 and < 65 kdr years (1), Risk Factors: No Risk Factors Known (0). HEATHER Risk Score: 1 - ASA use in past 7 days, 1 - Recent [<24hrs] Severe Angina. 10:45 Patient medically screened. kdr 12:13 Data reviewed: vital signs, nurses notes, lab test result(s), radiologic studies. kdr 09/11 07:56 Order name: Basic Metabolic Panel; Complete Time: 08:55 bp 09/11 07:56 Order name: CBC with Diff bp 09/11 07:56 Order name: LFT's; Complete Time: 08:55 bp 09/11 07:56 Order name: Magnesium; Complete Time: 08:55 bp 09/11 07:56 Order name: NT PRO-BNP; Complete Time: 08:55 bp 09/11 07:56 Order name: PT-INR; Complete Time: 08:55 bp 09/11 07:56 Order name: Troponin (emerg Dept Use Only); Complete Time: 08:55 bp 09/11 07:56 Order name: XRAY Chest (1 view); Complete Time: 10:12 bp 09/11 09:01 Order name: Troponin (emerg Dept Use Only): Draw 2 hours after initial draw; Complete kdr Time: 10:36 09/11 09:18 Order name: Manual Differential EDMS 09/11 07:56 Order name: EKG; Complete Time: 07:59 bp 09/11 07:56 Order name: Cardiac monitoring; Complete Time: 07:57 bp 09/11 07:56 Order name: EKG - Nurse/Tech; Complete Time: 07:57 bp 09/11 07:56 Order name: IV Saline Lock; Complete Time: 08:12 bp 09/11 07:56 Order name: Labs collected and sent; Complete Time: 08:12 bp 09/11 07:56 Order name: O2 Per Protocol; Complete Time: 07:57 bp 09/11 07:56 Order name: O2 Sat Monitoring; Complete Time: 07:57 bp 09/11 10:37 Order name: EKG - Nurse/Tech; Complete Time: 10:37 kdr 09/11 10:43 Order name: EKG; Complete Time: 10:44 em1 Administered Medications: 07:56 Drug: Aspirin Chewable Tablet 324 mg Route: PO; hj 08:12 Follow up: Response: No adverse reaction bp 08:09 Drug: morphine 2 mg Route: IVP; Site: right antecubital; hj 08:49 Follow up: Response: No adverse reaction hj 08:09 Drug: Zofran 4 mg Route: IVP; Site: right antecubital; hj 08:49 Follow up: Response: No adverse reaction; Nausea is decreased hj 08:55 Drug: Potassium Chloride 40 mEq Route: PO; hj 09:00 Follow up: Response: No adverse reaction hj Disposition: 09/11/18 10:45 Discharged to Home. Impression: Chest pain, unspecified. - Condition is Stable. - Discharge Instructions: Nonspecific Chest Pain, [id number]. - Prescriptions for Ibuprofen 800 mg Oral Tablet - take 1 tablet by ORAL route every 12 hours As needed take with food; 20 tablet. - Medication Reconciliation Form, Thank You Letter form. - Follow up: Private Physician; When: 2 - 3 days; Reason: If symptoms return, Further diagnostic work-up, Recheck today's complaints, Continuance of care, Re-evaluation by your physician. - Problem is new. - Symptoms have improved. Signatures: Dispatcher [employer] EDMS Jerzy Oswald MD MD kdr Joaquin, Henry, RN RN Nicolás Boles RN RN bp Corrections: (The following items were deleted from the chart) 10:57 10:45 09/11/2018 10:45 Discharged to Home. Impression: Chest pain, unspecified. hj Condition is Stable. Forms are Medication Reconciliation Form, Thank You Letter, Antibiotic Education, Prescription Opioid Use. Follow up: Private Physician; When: 2 - 3 days; Reason: If symptoms return, Further diagnostic work-up, Recheck today's complaints, Continuance of care, Re-evaluation by your physician. Problem is new. Symptoms have improved. kdr
--- NOTE | 2018-09-11 10:46 | ER ---
Nurse's Notes [facility] Name: Eddie Hamilton Age: 53 yrs Sex: Male : 1965 Arrival Date: 09/11/2018 Time: 07:46 Bed 6 Private MD: None, None Diagnosis: Chest pain, unspecified Presentation: 09/11 07:51 Presenting complaint: Patient states: LEFT SIDED "HEAVY" CHEST PAIN SINCE 0500. bp Transition of care: patient was not received from another setting of care. Onset of symptoms was September 11, 2018 at 05:00. Risk Assessment: Do you want to hurt yourself or someone else? Patient reports no desire to harm self or others. Initial Sepsis Screen: Does the patient meet any 2 criteria? No. Patient's initial sepsis screen is negative. Does the patient have a suspected source of infection? No. Patient's initial sepsis screen is negative. Care prior to arrival: None. 07:51 Method Of Arrival: Ambulatory bp 07:51 Acuity: NICO 2 bp Triage Assessment: 07:52 General: Appears in no apparent distress. uncomfortable, Behavior is calm, cooperative, bp appropriate for age. Pain: Complains of pain in chest Pain currently is 6 out of 10 on a pain scale. EENT: No deficits noted. Neuro: No deficits noted. Cardiovascular: Chest pain is described as severe, quality is heaviness. Respiratory: Reports shortness of breath. GI: No signs and/or symptoms were reported involving the gastrointestinal system. : No signs and/or symptoms were reported regarding the genitourinary system. Derm: No deficits noted. Musculoskeletal: No deficits noted. Historical: - Allergies: 07:52 No Known Allergies; bp - Home Meds: 07:52 None [Active]; bp - PMHx: 07:52 Asthma; bp - Immunization history:: Adult Immunizations up to date. - Social history:: Smoking status: Patient/guardian denies using tobacco. - Ebola Screening: : No symptoms or risks identified at this time. Screenin:54 Abuse screen: Denies threats or abuse. Denies injuries from another. Nutritional bp screening: No deficits noted. Tuberculosis screening: No symptoms or risk factors identified. Fall Risk None identified. Assessment: 07:54 General: SEE TRIAGE NOTE. Pain: Complains of pain in chest Pain does not radiate. Pain bp began 4 hours ago. Also complains of shortness of breath. 08:00 General: Appears in no apparent distress. uncomfortable, Behavior is calm, cooperative, hj appropriate for age. Pain: Complains of pain in anterior aspect of left upper chest Pain does not radiate. Pain began 4 hours ago. Neuro: Level of Consciousness is awake, alert, obeys commands, Oriented to person, place, time, situation, Appropriate for age. Cardiovascular: Reports chest pain. Respiratory: Airway is patent Respiratory effort is even, unlabored, Respiratory pattern is regular, symmetrical. GI: No signs and/or symptoms were reported involving the gastrointestinal system. : No signs and/or symptoms were reported regarding the genitourinary system. EENT: No signs and/or symptoms were reported regarding the EENT system. Derm: No signs and/or symptoms reported regarding the dermatologic system. Musculoskeletal: No signs and/or symptoms reported regarding the musculoskeletal system. 08:49 Reassessment: Patient and/or family updated on plan of care and expected duration. Pain hj level reassessed. Patient is alert, oriented x 3, equal unlabored respirations, skin warm/dry/pink. awaiting results and POC;. 10:16 Reassessment: 2nd set of trop sent;. hj 10:38 Reassessment: Patient and/or family updated on plan of care and expected duration. Pain hj level reassessed. Patient is alert, oriented x 3, equal unlabored respirations, skin warm/dry/pink. 2nd trop neg; for repeat EKG;. Vital Signs: 07:52 BP 126 / 90; Pulse 90; Resp 16; Temp 98; Pulse Ox 96% ; Weight 117.93 kg; Height 5 ft. bp 10 in. (177.80 cm); 08:50 BP 119 / 57; Pulse 75; Resp 18; Pulse Ox 99% on 2 lpm NC; hj 10:16 BP 116 / 68; Pulse 75; Resp 18; Pulse Ox 97% on R/A; hj 10:57 BP 118 / 69; Pulse 74; Resp 18; Pulse Ox 100% on R/A; hj 07:52 Body Mass Index 37.31 (117.93 kg, 177.80 cm) bp ED Course: 07:45 Nicolás Ordaz, RN is Primary Nurse. bp 07:46 Patient arrived in ED. dl4 07:46 None, None is Private Physician. dl4 07:52 Triage completed. bp 07:52 Jerzy Oswald MD is Attending Physician. kdr 07:52 Arm band placed on right wrist. bp 07:54 Patient has correct armband on for positive identification. Placed in gown. Bed in low bp position. Call light in reach. Side rails up X2. Adult w/ patient. site monitor on. Pulse ox on. NIBP on. 07:59 Primary Nurse role handed off by Nicolás Ordaz RN hj 07:59 Gonzalo Best, ARPITA is Primary Nurse. hj 08:00 EKG done, by ED staff, reviewed by Jerzy Oswald MD. em1 08:00 Patient maintains SpO2 saturation greater than 95% on room air. hj 08:09 Initial lab(s) drawn, by me, sent to lab. Inserted saline lock: 22 gauge in right hj antecubital area, using aseptic technique. Blood collected. 08:53 XRAY Chest (1 view) In Process Unspecified. EDMS 10:08 Troponin (emerg Dept Use Only): Draw 2 hours after initial draw Sent. hj 10:56 No provider procedures requiring assistance completed. IV discontinued, intact, hj bleeding controlled, No redness/swelling at site. Pressure dressing applied. Administered Medications: 07:56 Drug: Aspirin Chewable Tablet 324 mg Route: PO; hj 08:12 Follow up: Response: No adverse reaction bp 08:09 Drug: morphine 2 mg Route: IVP; Site: right antecubital; hj 08:49 Follow up: Response: No adverse reaction hj 08:09 Drug: Zofran 4 mg Route: IVP; Site: right antecubital; hj 08:49 Follow up: Response: No adverse reaction; Nausea is decreased hj 08:55 Drug: Potassium Chloride 40 mEq Route: PO; hj 09:00 Follow up: Response: No adverse reaction hj Outcome: 10:45 Discharge ordered by . kdr 10:56 Discharged to home ambulatory, with family. hj 10:56 Condition: stable 10:56 Discharge instructions given to patient, family, Instructed on discharge instructions, follow up and referral plans. medication usage, Demonstrated understanding of instructions, follow-up care, medications, Prescriptions given X 1. 10:57 Patient left the ED. hj Signatures: Dispatcher [employer] EDMS Jerzy Oswald MD MD kdr Martinez, Eric em1 Gonzalo Best RN RN Nicolás Boles RN RN Inder Cotton dl4 Corrections: (The following items were deleted from the chart) 08:09 Potassium Chloride 40 mEq PO [facility] 09:00 Response: No adverse reaction [facility]
[2018-09-11 11:04] VITALS: TEMP 98
[2018-09-11 11:08] VITALS: BP 118/69; O2SAT 100
--- NOTE | 2018-09-11 13:26 | EKG ---
Test Date: 2018-09-11 Test Time: 10:44:07 Embedded Processor: PHILIPPE MEASUREMENT RESULTS: Intervals: Rate: 67 SD: 160 QRSD: 96 QT: 414 QTc: 437 [place]: P: 56 SD: 160 QRS: 49 T: 69 INTERPRETIVE STATEMENTS: Normal sinus rhythm Normal ECG Compared to ECG 09/11/2018 07:56:49 Atrial abnormality no longer present Electronically Signed On 09-11-18 13:25:34 CDT by Vladislav Plascencia
== END 2018-09-11 10:57 | disposition home or self-care (01) ==
LOC: ER 07:42
DX: R07.9 Chest pain, unspecified (principal)
CPT/HCPCS: 36415; 71045; 80048; 80076; 83735; 83880; 84484; 85025; 85610; 93005; 96374; 96375; 99285; J2270; J2405